=== PATIENT | male | born 1955 | race Caucasian/White ===

== ENCOUNTER 2016-12-29 15:48 | Emergency (ER) | payer OTHER ==
[~2016-12-29] VITALS: Ht 170.2 cm; Wt 81.8 kg
[2016-12-29] MEDS ORDERED: METH10 PO (16:24)
[2016-12-29] MEDS ORDERED: DEXAMETHASONE SOD PHOS 4 MG/ML 5 ML VIAL IM ONE (18:30)
[2016-12-29] MEDS ORDERED: DiphenhydrAMINE HCL 50 MG/ML VIAL IM ONE (18:30)
[2016-12-29] MEDS ORDERED: ACETAMINOPHEN 500 MG TABLET PO ONE (18:30)
[2016-12-29 18:57] VITALS: BP 145/78
== END 2016-12-29 18:58 | disposition home or self-care (01) ==
LOC: EMS 15:50
DX: S60.562A Insect bite (nonvenomous) of left hand, initial encounter (principal); W57.XXXA Bitten or stung by nonvenomous insect and other nonvenomous arthropods, initial encounter; Y93.89 Activity, other specified; Y92.9 Unspecified place or not applicable; Y99.9 Unspecified external cause status; F17.210 Nicotine dependence, cigarettes, uncomplicated
CPT/HCPCS: 96372; 99284; J1100; J1200

== ENCOUNTER 2017-07-03 12:44 | Emergency (ER) | payer OTHER ==
[~2017-07-03] VITALS: Ht 170.2 cm; Wt 81.5 kg
[~2017-07-03 12:44] MED LIST: METH10 PO
[2017-07-03 13:41] VITALS: BP 149/87
[2017-07-03] MEDS ORDERED: ACETAMINOPHEN 325 MG TABLET PO ONE (14:45)
[2017-07-03] MEDS ORDERED: GuaiFENesin/D-METHORPHAN [SUGAR-FREE] 200-20MG/10 ML SYRUP UDCUP PO ONE (14:45)
== END 2017-07-03 14:46 | disposition home or self-care (01) ==
LOC: EMS 12:45
DX: J06.9 Acute upper respiratory infection, unspecified (principal); R03.0 Elevated blood-pressure reading, without diagnosis of hypertension; F11.90 Opioid use, unspecified, uncomplicated; F17.210 Nicotine dependence, cigarettes, uncomplicated
CPT/HCPCS: 99283

== ENCOUNTER 2017-10-21 00:26 | Emergency (ER) | payer OTHER ==
[~2017-10-21] VITALS: Ht 170.2 cm; Wt 81.8 kg
[2017-10-21 06:14] VITALS: BP 132/79
== END 2017-10-21 06:17 | disposition home or self-care (01) ==
LOC: EMS 00:28
DX: T63.301A Toxic effect of unspecified spider venom, accidental (unintentional), initial encounter (principal); F17.210 Nicotine dependence, cigarettes, uncomplicated; F11.90 Opioid use, unspecified, uncomplicated; M79.89 Other specified soft tissue disorders
CPT/HCPCS: 99281

== ENCOUNTER 2019-03-21 02:07 | Emergency (ER) | payer OTHER ==
[~2019-03-21] VITALS: Ht 170.2 cm; Wt 81.8 kg
[2019-03-21] MEDS ORDERED: KETOROLAC TROMETHAMINE 30 MG/ML VIAL IVP ONE (03:45)
[2019-03-21] MEDS ORDERED: LIDOCAINE 5% TRANSDERMAL PATCH TD ONE (03:45)
[2019-03-21] MEDS ORDERED: CYCLOBENZAPRINE HCL 10 MG TABLET PO ONE (03:45)
[2019-03-21] MEDS ORDERED: ACETAMINOPHEN 500 MG TABLET PO ONE (03:45)
[2019-03-21 04:34] LABS: BASOPHILS % (AUTO) 0.9 % (0.0-2.0); EOSINOPHILS % (AUTO) 2.4 % (1.0-6.0); HEMATOCRIT 38.1 % (41-53); HEMOGLOBIN 12.7 g/dL (13.5-17.5); LYMPHOCYTES # (AUTO) 2.1 K/uL (1.0-4.8); LYMPHOCYTES % (AUTO) 26.5 % (22.0-44.0); MEAN CORPUSCULAR HEMOGLOBIN 30.1 pg (26.0-34.0); MEAN CORPUSCULAR HGB CONC 33.2 G/dL (31.0-37.0); MEAN CORPUSCULAR VOLUME 91 fL (80-100); MONOCYTES # (AUTO) 0.9 K/uL (0.1-1.0); MONOCYTES % (AUTO) 11.7 % (2.0-9.0); NEUTROPHILS # (AUTO) 4.6 K/uL (1.8-7.7); NEUTROPHILS % (AUTO) 58.5 % (40.0-70.0); PLATELET COUNT (AUTO) 335 K/uL (150-450); RED BLOOD CELL COUNT(AUTO) 4.21 MIL/uL (4.50-5.90); RED CELL DISTRIBUTION WIDTH 14.4 % (11.5-14.5)
[2019-03-21 04:42] LABS: ANION GAP 8 mmol/L (8-16); CALCIUM, TOTAL 8.9 mg/dL (8.8-10.5); CARBON DIOXIDE 28 mmol/L (22-29); CHLORIDE 103 mmol/L (98-107); CREATININE 0.67 mg/dL (0.60-1.30); GLOMERULAR FILTR. RATE CALC > 60 mL/min (>60); GLUCOSE,RANDOM 92 mg/dL (70-110); POTASSIUM 3.9 mmol/L (3.5-5.1); SODIUM SERUM 139 mmol/L (136-145); UREA NITROGEN, BLOOD 17 mg/dL (7-18)
[2019-03-21] MEDS ORDERED: IOVERSOL 350 MG/ML 100 ML VIAL ONE (04:46)
[2019-03-21 04:47] LABS: ALANINE AMINOTRANSFERASE 32 U/L (12-78); ALBUMIN 3.2 g/dL (3.4-5.0); ALKALINE PHOSPHATASE 94 U/L (46-116); ASPARTATE AMINOTRANSFERASE 39 U/L (15-37); BILIRUBIN,TOTAL 0.3 mg/dL (0.1-1.0); C-REACTIVE PROTEIN QUANT 0.36 mg/dL (0.00-0.30); TOTAL PROTEIN, SERUM 7.5 g/dL (6.4-8.2)
[2019-03-21] MEDS ORDERED: SODIUM CHLORIDE 0.9% 100 ML ONE (04:47)
[2019-03-21 05:51] LABS: ERYTHROCYTE SEDIMENTATION RATE 18 MM/HR (0-15)
[2019-03-21 09:20] VITALS: BP 119/75
== END 2019-03-21 09:32 | disposition home or self-care (01) ==
LOC: EMS 02:09
DX: S39.012A Strain of muscle, fascia and tendon of lower back, initial encounter (principal); F11.90 Opioid use, unspecified, uncomplicated; F15.90 Other stimulant use, unspecified, uncomplicated; F17.210 Nicotine dependence, cigarettes, uncomplicated; W18.39XA Other fall on same level, initial encounter; Y93.89 Activity, other specified; Y92.89 Other specified places as the place of occurrence of the external cause; Y99.8 Other external cause status
CPT/HCPCS: 36415; 72132; 80053; 85025; 85651; 86140; 96374; 99284; J1885; J7050; Q9967

== ENCOUNTER 2020-03-21 21:40 | Emergency (ER) | payer MEDICARE, OTHER ==
[~2020-03-21] VITALS: Ht 170.2 cm; Wt 79.5 kg
[2020-03-21] MEDS ORDERED: DOXYCYCLINE HYCLATE 100 MG TABLET PO ONE (23:15)
[2020-03-21 23:47] LABS: COVID AG,FIA SOURCE NASOPHARYNGEAL
[2020-03-22 01:05] VITALS: BP 120/76
== END 2020-03-22 01:10 | disposition home or self-care (01) ==
LOC: EMS 21:40
DX: L03.113 Cellulitis of right upper limb (principal); Z20.828 Contact with and (suspected) exposure to other viral communicable diseases
CPT/HCPCS: 87426

== ENCOUNTER 2020-11-09 14:56 | Emergency (ER) | payer MEDICARE, OTHER ==
[~2020-11-09] VITALS: Ht 170.2 cm; Wt 79.5 kg
[2020-11-09] MEDS ORDERED: DiphenhydrAMINE HCL 25 MG CAPSULE PO ONE (18:15)
[2020-11-09 18:31] VITALS: BP 149/91
== END 2020-11-09 19:16 | disposition home or self-care (01) ==
LOC: EMS 15:03
DX: L03.114 Cellulitis of left upper limb (principal)
CPT/HCPCS: 99283

== ENCOUNTER 2023-01-06 11:18 | Inpatient (IN) | payer MEDICARE, OTHER ==
[~2023-01-06] VITALS: Ht 167.6 cm; Wt 75.0 kg
[2023-01-06 13:46] LABS: BASOPHILS % (AUTO) 0.6 % (0.0-2.0); HEMATOCRIT 37.1 % (41-53); HEMOGLOBIN 12.4 g/dL (13.5-17.5); LYMPHOCYTES # (AUTO) 1.7 K/uL (1.0-4.8); LYMPHOCYTES % (AUTO) 24.5 % (22.0-44.0); MEAN CORPUSCULAR HEMOGLOBIN 28.5 pg (26.0-34.0); MEAN CORPUSCULAR HGB CONC 33.5 G/dL (31.0-37.0); MEAN CORPUSCULAR VOLUME 85 fL (80-100); MONOCYTES # (AUTO) 0.6 K/uL (0.1-1.0); MONOCYTES % (AUTO) 8.3 % (2.0-9.0); NEUTROPHILS # (AUTO) 4.6 K/uL (1.8-7.7); NEUTROPHILS % (AUTO) 65.6 % (40.0-70.0); PLATELET COUNT (AUTO) 295 K/uL (150-450); RED BLOOD CELL COUNT(AUTO) 4.35 MIL/uL (4.50-5.90); RED CELL DISTRIBUTION WIDTH 17.1 % (11.5-14.5)
[2023-01-06 13:55] LABS: ANION GAP 4 mmol/L (8-16); CALCIUM, TOTAL 8.5 mg/dL (8.8-10.5); CARBON DIOXIDE 29 mmol/L (22-29); CHLORIDE 102 mmol/L (98-107); CREATININE 0.62 mg/dL (0.60-1.30); GLOMERULAR FILTR. RATE CALC > 60 mL/min (>60); GLUCOSE,RANDOM 108 mg/dL (70-110); POTASSIUM 3.6 mmol/L (3.5-5.1); SODIUM SERUM 135 mmol/L (136-145)
[2023-01-06 14:01] LABS: ALANINE AMINOTRANSFERASE 56 U/L (12-78); ALBUMIN 2.9 g/dL (3.4-5.0); ALKALINE PHOSPHATASE 86 U/L (46-116); ASPARTATE AMINOTRANSFERASE 66 U/L (15-37); BILIRUBIN,TOTAL 0.4 mg/dL (0.1-1.0); TOTAL PROTEIN, SERUM 7.5 g/dL (6.4-8.2)
[2023-01-06] MEDS ORDERED: CLINDAMYCIN 600 MG/D5% WATER 50 ML IV ONE (15:00)
[2023-01-06] MEDS ORDERED: HYDROCODONE/ACETAMINOPHEN 5-325 MG TABLET PO PRN (19:00)
[2023-01-06] MEDS ORDERED: ALBUTEROL SULFATE 2.5 MG/0.5 ML NEB SOLUTION NEB PRN (19:00)
[2023-01-06] MEDS ORDERED: ONDANSETRON HCL 4 MG/2 ML VIAL IVP PRN (19:00)
[2023-01-06] MEDS ORDERED: MORPHINE SULFATE 2 MG/ML SYRINGE IVP PRN (19:00)
[2023-01-06] MEDS ORDERED: ACETAMINOPHEN 325 MG TABLET PO PRN (19:00)
[2023-01-06] MEDS ORDERED: BISACODYL 10 MG RECTAL RECTAL SUPPOSITORY PR PRN (19:00)
[2023-01-06] MEDS ORDERED: ZOLPIDEM TARTRATE 5 MG TABLET PO PRN (19:00)
[2023-01-06] MEDS ORDERED: IPRATROPIUM BROMIDE 0.5 MG/2.5 ML NEB SOLUTION NEB PRN (19:00)
[2023-01-06] MEDS ORDERED: MAGNESIUM HYDROXIDE SUSPENSION 30 ML UDCUP PO PRN (19:00)
[2023-01-06] MEDS ORDERED: VANCOMYCIN HCL 1.5 GM in DEXTROSE 5%-WATER 250 ML IV ONE (19:15)
[2023-01-06] MEDS: HEPARIN SODIUM,PORCINE 5,000 UNITS/ML VIAL SQ SCH (23:16)
[2023-01-07] MEDS: VANCOMYCIN HCL 1.25 GM in DEXTROSE 5%-WATER 250 ML IV SCH ×2 (07:20→21:27)
[2023-01-07] MEDS: HEPARIN SODIUM,PORCINE 5,000 UNITS/ML VIAL SQ SCH ×3 (08:12→23:43)
[2023-01-07] MEDS: PANTOPRAZOLE SODIUM 40 MG DR TABLET PO SCH (08:13)
[2023-01-07] MEDS ORDERED: METHADONE HCL 10 MG TABLET PO SCH (09:00)
[2023-01-07 10:44] LABS: ANION GAP 2 mmol/L (8-16); CALCIUM, TOTAL 8.4 mg/dL (8.8-10.5); CARBON DIOXIDE 30 mmol/L (22-29); CHLORIDE 99 mmol/L (98-107); CREATININE 0.56 mg/dL (0.60-1.30); GLOMERULAR FILTR. RATE CALC > 60 mL/min (>60); GLUCOSE,RANDOM 124 mg/dL (70-110); SODIUM SERUM 131 mmol/L (136-145)
[2023-01-07 11:05] VITALS: BP 130/71; PULSE 54; RESP 18; TEMP 98.1
[2023-01-07] MEDS ORDERED: METHADONE HCL 10 MG TABLET PO ONE (13:15)
[2023-01-07 15:56] VITALS: BP 114/70; PULSE 51; RESP 19; TEMP 97.8
[2023-01-07 20:19] VITALS: BP 137/76; PULSE 61; RESP 19; TEMP 98.7
[2023-01-07] MEDS ORDERED: SODIUM CHLORIDE 0.9% 500 ML IV ONE (21:23)
[2023-01-08 04:38] VITALS: BP 126/77; PULSE 59; RESP 18; TEMP 97.8
[2023-01-08 07:51] LABS: ANION GAP 6 mmol/L (8-16); CALCIUM, TOTAL 8.8 mg/dL (8.8-10.5); CARBON DIOXIDE 25 mmol/L (22-29); CHLORIDE 100 mmol/L (98-107); CREATININE 0.57 mg/dL (0.60-1.30); GLOMERULAR FILTR. RATE CALC > 60 mL/min (>60); GLUCOSE,RANDOM 86 mg/dL (70-110); POTASSIUM 4.1 mmol/L (3.5-5.1); SODIUM SERUM 131 mmol/L (136-145); VANCOMYCIN,RANDOM 13.8 mcg/mL (25.0-50.0)
[2023-01-08] MEDS: VANCOMYCIN HCL 1.25 GM in DEXTROSE 5%-WATER 250 ML IV SCH ×2 (08:00→08:58)
[2023-01-08] MEDS: HEPARIN SODIUM,PORCINE 5,000 UNITS/ML VIAL SQ SCH ×4 (08:00→23:38)
[2023-01-08] MEDS: METHADONE HCL 10 MG TABLET PO SCH (08:15)
[2023-01-08 08:17] VITALS: BP 132/75; PULSE 53; RESP 17; TEMP 97.8
[2023-01-08] MEDS: PANTOPRAZOLE SODIUM 40 MG DR TABLET PO SCH (08:18)
[2023-01-08 15:23] VITALS: BP 132/79; PULSE 52; TEMP 97.8
[2023-01-08 19:54] VITALS: BP 110/64; PULSE 50; RESP 20; TEMP 98.6
[2023-01-08] MEDS: VANCOMYCIN HCL 1.5 GM in DEXTROSE 5%-WATER 250 ML IV SCH (19:56)
[2023-01-09 03:39] VITALS: BP 117/70; PULSE 50; RESP 18; TEMP 98.5
[2023-01-09 07:14] LABS: ANION GAP 5 mmol/L (8-16); CALCIUM, TOTAL 8.4 mg/dL (8.8-10.5); CARBON DIOXIDE 29 mmol/L (22-29); CHLORIDE 98 mmol/L (98-107); CREATININE 0.62 mg/dL (0.60-1.30); GLOMERULAR FILTR. RATE CALC > 60 mL/min (>60); GLUCOSE,RANDOM 80 mg/dL (70-110); POTASSIUM 4.2 mmol/L (3.5-5.1); SODIUM SERUM 132 mmol/L (136-145)
[2023-01-09 08:10] VITALS: BP 120/74; PULSE 50; RESP 16; TEMP 97.8
[2023-01-09] MEDS: VANCOMYCIN HCL 1.5 GM in DEXTROSE 5%-WATER 250 ML IV SCH ×2 (08:25→20:42)
[2023-01-09] MEDS: PANTOPRAZOLE SODIUM 40 MG DR TABLET PO SCH (08:25)
[2023-01-09] MEDS: METHADONE HCL 10 MG TABLET PO SCH (08:25)
[2023-01-09] MEDS: HEPARIN SODIUM,PORCINE 5,000 UNITS/ML VIAL SQ SCH ×3 (08:28→23:14)
[2023-01-09 16:17] VITALS: BP 110/59; PULSE 110; RESP 16; TEMP 98.7
[2023-01-09 20:00] VITALS: BP 136/65; PULSE 63; RESP 18; TEMP 98.1
[2023-01-10 04:58] VITALS: BP 128/69; PULSE 54; RESP 18; TEMP 98.5
[2023-01-10 07:57] VITALS: BP 124/72; PULSE 58; RESP 18; TEMP 98.4
[2023-01-10 08:17] LABS: ANION GAP 10 mmol/L (8-16); CALCIUM, TOTAL 8.6 mg/dL (8.8-10.5); CARBON DIOXIDE 26 mmol/L (22-29); CHLORIDE 98 mmol/L (98-107); CREATININE 0.58 mg/dL (0.60-1.30); GLOMERULAR FILTR. RATE CALC > 60 mL/min (>60); GLUCOSE,RANDOM 78 mg/dL (70-110); POTASSIUM 4.4 mmol/L (3.5-5.1); SODIUM SERUM 134 mmol/L (136-145); VANCOMYCIN,RANDOM 20.1 mcg/mL (25.0-50.0)
[2023-01-10] MEDS: VANCOMYCIN HCL 1.5 GM in DEXTROSE 5%-WATER 250 ML IV SCH (08:48)
[2023-01-10] MEDS: METHADONE HCL 10 MG TABLET PO SCH (08:49)
[2023-01-10] MEDS: PANTOPRAZOLE SODIUM 40 MG DR TABLET PO SCH (08:49)
[2023-01-10] MEDS: HEPARIN SODIUM,PORCINE 5,000 UNITS/ML VIAL SQ SCH (08:49)
[2023-01-10] MEDS ORDERED: DOXY-354 PO (12:48)
[2023-01-10] MEDS ORDERED: IOHEXOL 350 MG/ML 100 ML VIAL ONE (13:00)
[2023-01-10] MEDS ORDERED: SODIUM CHLORIDE 0.9% 100 ML ONE (13:01)
[2023-01-10 14:34] LABS: THYROID STIMULATING HORMONE 1.94 uIU/mL (0.36-3.74)
[2023-01-10] MEDS ORDERED: VANCOMYCIN HCL 1.25 GM in DEXTROSE 5%-WATER 250 ML IV SCH (20:00)
== END 2023-01-10 14:50 | disposition home or self-care (01) | DRG 641 ==
LOC: EMS 11:25 → ICUN 01-07 02:00 → 5S 01-07 04:00 → 6S 01-07 18:33
PROVIDERS: ADMIT Hospitalist; ATTEND Hospitalist
PROC: 05HB33Z Insertion of Infusion Device into Right Basilic Vein, Percutaneous Approach (ICD-10-PCS; principal; 2023-01-08)
DX: E87.1 Hypo-osmolality and hyponatremia (principal); L03.116 Cellulitis of left lower limb; F11.90 Opioid use, unspecified, uncomplicated; I10 Essential (primary) hypertension; F10.90 Alcohol use, unspecified, uncomplicated; F19.11 Other psychoactive substance abuse, in remission; F17.210 Nicotine dependence, cigarettes, uncomplicated; Z83.3 Family history of diabetes mellitus
CPT/HCPCS: 36245; 36569; 73701; 76937; 80048; 80053; 80202; 84443; 85025; 87040; 93971; 99285; J1644; J3370; J3490; J7040; J7050; J7060; Q9967

== ENCOUNTER 2023-10-26 22:15 | Emergency (ER) | payer MEDICARE, OTHER ==
[~2023-10-26] VITALS: Ht 170.2 cm; Wt 85.0 kg
[~2023-10-26 22:15] MED LIST changes: +CLIN300C58 PO; +LEVO-72 PO
[2023-10-27] MEDS: IBUPROFEN 600 MG TABLET PO ONE (00:58)
[2023-10-27 02:00] VITALS: BP 122/79; PULSE 72; RESP 18
== END 2023-10-27 02:28 | disposition home or self-care (01) ==
LOC: EMS 22:17
DX: S01.01XA Laceration without foreign body of scalp, initial encounter (principal); F17.210 Nicotine dependence, cigarettes, uncomplicated; Y08.89XA Assault by other specified means, initial encounter; Y93.89 Activity, other specified; Y92.89 Other specified places as the place of occurrence of the external cause; Y99.8 Other external cause status
CPT/HCPCS: 12001; 70450; 70486; 99284